=== PATIENT | female | born 2000 | race Caucasian/White ===

== ENCOUNTER 2022-10-24 16:26 | Emergency (ER) | payer OTHER ==
[~2022-10-24] VITALS: Ht 160 cm; Wt 59.1 kg
[2022-10-24] MEDS ORDERED: TRAZ-252 PO (16:33)
[2022-10-24] MEDS ORDERED: NS 1,000 ML IV ONE (16:50)
[2022-10-24 16:56] LABS: BASO % 0.5 % (0.0-1.0); EOS % 0.5 % (0.0-3.0); LYMPH # 1.6 10^3/uL (1.5-5.0); LYMPH % 27.7 % (24.0-44.0); MEAN CORPUSCULAR HEMOGLOBIN 31.9 pg (27.0-33.0); MEAN CORPUSCULAR VOLUME 91.1 fl (80.0-96.0); MONO # 0.6 10^3/uL (0.0-0.8); MONO % 10.1 % (2.0-8.0); NEUTROPHILS # 3.5 10^3/uL (1.5-8.5); PLATELET COUNT, AUTOMATED 248 10^3/uL (150-450); RED BLOOD COUNT 4.39 10^6/uL (4.00-5.40); WHITE BLOOD COUNT 5.7 10^3/uL (4.0-10.0)
[2022-10-24 17:40] LABS: APPEARANCE, URINE CLEAR (CLEAR); BACTERIA, URINE AUTO 1+ (NEGATIVE); BILIRUBIN, URINE AUTO NEGATIVE (NEGATIVE); BLOOD, URINE BLOOD 2+ (NEGATIVE); COLOR, URINE YELLOW (YELLOW); GLUCOSE, URINE (UA) AUTO NEGATIVE (NEGATIVE); KETONE, URINE AUTO NEGATIVE (NEGATIVE); LEUKOCYTE ESTERASE, URINE AUTO NEGATIVE (NEGATIVE); NITRITE, URINE AUTO NEGATIVE (NEGATIVE); PROTEIN, URINE AUTO NEGATIVE (NEGATIVE); RBC, URINE AUTO 1 /HPF (0-3); SPECIFIC GRAVITY URINE AUTO 1.009 (1.002-1.035); SQUAMOUS EPITHELIAL CELL UR AU 1 /HPF (0-6); UROBILINOGEN, URINE AUTO 0.2 mg/dL (0.0-2.0); WBC, URINE AUTO 0 /HPF (0-3)
[2022-10-24 19:29] LABS: GC DNA AMPLIFICATION NEGATIVE (NEGATIVE)
[2022-10-24 19:57] VITALS: BP 115/75
== END 2022-10-24 20:01 | disposition home or self-care (01) ==
LOC: M ED 16:26
DX: O20.0 Threatened abortion (principal); Z3A.01 Less than 8 weeks gestation of pregnancy

== ENCOUNTER 2023-06-12 13:27 | Inpatient (IN) | payer OTHER ==
[2023-06-12] VITALS (7 sets, daily range): BP systolic 130–144; BP diastolic 84–100
[~2023-06-12] VITALS: Ht 160 cm; Wt 82.1 kg
[~2023-06-12 13:27] MED LIST: TRAZ-252 PO
[2023-06-12] MEDS ORDERED: MULTTAB20 PO (13:43)
[2023-06-12] MEDS ORDERED: BENA25CA4 PO (13:43)
[2023-06-12] MEDS ORDERED: HOME MED LIST COMPLETE! XX SCH (13:45)
[2023-06-12 15:13] LABS: HEMATOCRIT 36.3 % (36.0-47.0); MEAN CORPUSCULAR HEMOGLOBIN 33.1 pg (27.0-33.0); MEAN CORPUSCULAR HGB CONC 35.8 g/dl (32.0-36.5); MEAN CORPUSCULAR VOLUME 92.4 fl (80.0-96.0); PLATELET COUNT, AUTOMATED 208 10^3/uL (150-450); RED BLOOD COUNT 3.93 10^6/uL (4.00-5.40); WHITE BLOOD COUNT 9.6 10^3/uL (4.0-10.0)
[2023-06-12] MEDS ORDERED: LIDOCAINE 1% MDV 20ML VIAL INFIL PRN (16:40)
[2023-06-12] MEDS ORDERED: CARBOPROST TROMETHAMINE 250 MCG/ML AMP IM PRN (16:40)
[2023-06-12] MEDS ORDERED: TRANEXAMIC ACID INJection 1,000 MG in NS 100 ML IV PRN (16:40)
[2023-06-12] MEDS ORDERED: OXYTOCIN DRIP 30 UNITS in IV 1 EA IV PRN ×4 (16:40)
[2023-06-12] MEDS ORDERED: METHYLERGONOVINE MALEATE 0.2MG/ML 1ML VIAL IM PRN (16:40)
[2023-06-12] MEDS: LR 1,000 ML IV SCH (16:40)
[2023-06-12] MEDS: miSOPROStol 50MCG 1/2 TABLET PO SCH ×2 (16:58→22:59)
[2023-06-12 17:45] LABS: ALBUMIN 2.7 G/DL (3.2-5.2); ALKALINE PHOSPHATASE 157 U/L (46-116); ALT/SGPT 12 U/L (7.0-40); AST/SGOT 15 U/L (<34); BILIRUBIN,TOTAL 0.3 MG/DL (0.3-1.2); BLOOD UREA NITROGEN 10 MG/DL (9-23); CALCIUM LEVEL 8.4 MG/DL (8.5-10.1); CARBON DIOXIDE LEVEL 20 MMOL/L (20-31); CHLORIDE LEVEL 108 MMOL/L (98-107); CREATININE FOR GFR 0.46 MG/DL (0.55-1.30); GLOMERULAR FILTRATION RATE > 60.0 (>60); GLUCOSE, FASTING 72 MG/DL (60-100); SODIUM LEVEL 137 MMOL/L (136-145); TOTAL PROTEIN 5.6 G/DL (5.7-8.2)
[2023-06-12 18:08] LABS: CREATININE,RANDOM URINE 148.6 MG/DL
[2023-06-12 18:11] LABS: TOTAL PROTEIN,RANDOM URINE 153.3 MG/DL (0.0-14.0)
[2023-06-13] VITALS (32 sets, daily range): BP systolic 106–152; BP diastolic 57–97; O2SAT 83
[2023-06-13] MEDS: miSOPROStol 50MCG 1/2 TABLET PO SCH (04:59)
[2023-06-13] MEDS ORDERED: OXYTOCIN DRIP 30 UNITS in IV 1 EA IV SCH (09:30)
[2023-06-13] MEDS: LR 1,000 ML IV SCH (09:45)
[2023-06-13] MEDS ORDERED: ePHEDrine SULFATE 25 MG/5 ML(5MG/ML) SYRINGE IVP PRN (14:15)
[2023-06-13] MEDS ORDERED: diphenhydrAMINE 50MG/ML VIAL IV PRN (14:15)
[2023-06-13] MEDS ORDERED: LR 500 ML IV PRN (14:15)
[2023-06-13] MEDS ORDERED: EPIDURAL/PCA KEYS XX PRN (14:15)
[2023-06-13] MEDS ORDERED: NALOXONE INJ 0.4MG/1ML VIAL IV PRN (14:15)
[2023-06-13] MEDS ORDERED: ONDANSETRON 4MG 2ML VIAL IV PRN (14:15)
[2023-06-13] MEDS ORDERED: FENTANYL/ROPIVACAINE/NACL BAG 100 ML EPIDURAL SCH (14:15)
[2023-06-13] MEDS ORDERED: ANUSOL HC CREAM 30GM TOP PRN (22:15)
[2023-06-13] MEDS ORDERED: DOCUSATE SODIUM 100MG CAPSULE PO PRN (22:15)
[2023-06-13] MEDS ORDERED: MOM 30ML SUSPENSION UDC PO PRN (22:15)
[2023-06-13] MEDS ORDERED: RHOGAM 300MCG (1500IU) INJ IM SCH (22:15)
[2023-06-13] MEDS: IBUPROFEN 800 MG TAB PO PRN (22:32)
[2023-06-14] VITALS (7 sets, daily range): BP systolic 117–139; BP diastolic 63–89; O2SAT 97–100
[2023-06-14] MEDS: PRENATAL VITAMINS CHEWABLE TABLET PO SCH (08:12)
[2023-06-14] MEDS: ACETAMINOPHEN 500 MG TAB PO PRN ×2 (08:13→16:12)
[2023-06-14] MEDS: DIBUCAINE 1% OINTMENT 30GM TOP PRN (08:28)
[2023-06-14] MEDS: IBUPROFEN 800 MG TAB PO PRN ×2 (12:03→20:19)
[2023-06-15] MEDS: ACETAMINOPHEN 500 MG TAB PO PRN ×2 (01:52→11:01)
[2023-06-15 01:56] VITALS: BP 130/82; O2SAT 99
[2023-06-15 05:38] VITALS: BP 126/80; O2SAT 99
[2023-06-15] MEDS: PRENATAL VITAMINS CHEWABLE TABLET PO SCH (07:51)
[2023-06-15] MEDS: IBUPROFEN 800 MG TAB PO PRN (07:52)
[2023-06-15] MEDS: DIBUCAINE 1% OINTMENT 30GM TOP PRN (08:09)
[2023-06-15] MEDS ORDERED: MEASLES,MUMPS,RUBELLA VACCINE INJ (MMR-II) SC.IMMUN ONE (09:00)
[2023-06-15 10:00] VITALS: BP 119/66; O2SAT 100
[2023-06-15] MEDS ORDERED: COLA100C5 PO (10:18)
[2023-06-15] MEDS ORDERED: ACET-683 PO (10:18)
[2023-06-15] MEDS ORDERED: IBUP80TA PO (10:18)
[2023-06-15] MEDS ORDERED: INFLUENZA QUADRIVALENT PF VACCINE 0.5ML SYRINGE IM.IMMUN ONE (12:00)
== END 2023-06-15 13:30 | disposition home or self-care (01) | DRG 807 ==
LOC: M LDI 13:27 → M OBS 06-13 22:00
PROVIDERS: ADMIT Obstetrics & Gynecology; ATTEND Obstetrics & Gynecology
PROC: 3E0P7GC Introduction of Other Therapeutic Substance into Female Reproductive, Via Natural or Artificial Opening (ICD-10-PCS; 2023-06-12)
PROC: 10E0XZZ Delivery of Products of Conception, External Approach (ICD-10-PCS; principal; 2023-06-13)
PROC: 10907ZC Drainage of Amniotic Fluid, Therapeutic from Products of Conception, Via Natural or Artificial Opening (ICD-10-PCS; 2023-06-13)
PROC: 0HQ9XZZ Repair Perineum Skin, External Approach (ICD-10-PCS; 2023-06-13)
DX: O14.04 Mild to moderate pre-eclampsia, complicating childbirth (principal); Z37.0 Single live birth; Z3A.39 39 weeks gestation of pregnancy; O70.0 First degree perineal laceration during delivery